=== PATIENT | female | born 2000 | race African-American/Black ===

== ENCOUNTER 2021-12-24 13:08 | Emergency (ER) | payer OTHER ==
[2021-12-24 14:44] VITALS: BP 98/63; PULSE 86; RESP 16; TEMP 98.2; BMI 19.8
[2021-12-24] MEDS ORDERED: SODIUM CHLORIDE 1,000 ML IV STA (18:45)
[2021-12-24 20:16] LABS: BASO % 0.4 % (0-2.0); EOS % 1.4 % (0-4.5); HEMATOCRIT 34.2 % (32.4-45.2); HEMOGLOBIN 11.3 GM/dL (10.7-15.3); LYMPH % 46.5 % (8-40); MCH 28.7 pg (25.7-33.7); MCHC 33.2 g/dl (32.0-36.0); MEAN CELL VOLUME 86.5 fl (80-96); MEAN PLT VOLUME 8.5 fl (7.5-11.1); MONO % 5.6 % (3.8-10.2); NEUT % 46.1 % (42.8-82.8); PLATELET COUNT 267 10^3/uL (134-434); RBC 3.95 M/mm3 (3.60-5.2); RDW 14.7 % (11.6-15.6); WHITE BLOOD COUNT 4.7 K/mm3 (4.0-10.0)
[2021-12-24 20:45] LABS: CALCIUM 8.8 mg/dL (8.5-10.1)
[2021-12-24 20:46] LABS: ALBUMIN 3.5 g/dl (3.4-5.0); BLOOD UREA NITROGEN 5.8 mg/dL (7-18)
[2021-12-24 20:49] LABS: CREATININE 0.7 mg/dL (0.55-1.3)
[2021-12-24 20:50] LABS: BILIRUBIN,TOTAL 0.2 mg/dL (0.2-1)
[2021-12-24 20:59] LABS: EPI CELLS 28 /uL (0-25.1); HCG,QUALITATIVE URINE Negative; HYALINE CASTS 1 /uL (0-3.1); PH,URINE 7.5 (5.0-8.0); URINE APPEARANCE CLOUDY; URINE BACTERIA 57 /uL (0-1359); URINE BILIRUBIN NEGATIVE (NEGATIVE); URINE COLOR ORANGE; URINE GLUCOSE (UA) NEGATIVE (NEGATIVE); URINE KETONE TRACE (NEGATIVE); URINE LEUK ESTERASE 1+ (NEGATIVE); URINE NITRITE NEGATIVE (NEGATIVE); URINE PROTEIN 1+ (NEGATIVE); URINE RBC 6239 /uL (0-23.9); URINE WBC 60 /uL (0-25.8)
== END 2021-12-25 00:09 | disposition home or self-care (01) ==
LOC: JER 13:08
DX: E05.90 Thyrotoxicosis, unspecified without thyrotoxic crisis or storm (principal)
CPT/HCPCS: 0241U-QW; 36415; 71046-TC-FY; 74176-TC; 80053; 81003; 83690; 84439; 84443; 84484; 84703; 85025; 87086; 93005; 93010; 99285-25